=== PATIENT | female | born 1985 | race Two or more races ===

== ENCOUNTER 2019-08-03 14:36 | Emergency (ER) | payer OTHER ==
[~2019-08-03] VITALS: Ht 157.5 cm; Wt 73.9 kg
[2019-08-03 15:44] LABS: Alanine Aminotransferase 52 U/L (13-56); Albumin 3.4 g/dL (3.4-5.0); Anion Gap 9 (5-15); Aspartate Aminotransferase 23 U/L (15-37); BUN/Creatinine Ratio 29.9; Blood Urea Nitrogen 20 mg/dL (7-18); Calcium 8.5 mg/dL (8.5-10.1); Carbon Dioxide 26 mmol/L (21-32); Chloride 105 mmol/L (98-107); GFR African American 128 mL/min; GFR Non-African American 106 mL/min; Glucose 125 mg/dL (74-106); Magnesium 2.3 mg/dL (1.6-2.6); Potassium 3.2 mmol/L (3.5-5.1); Sodium 140 mmol/L (136-145)
[2019-08-03 15:49] LABS: Alkaline Phosphatase 75 U/L (45-117); Bilirubin, Total 0.2 mg/dL (0.2-1.0); Total Protein 7.2 g/dL (6.4-8.2)
[2019-08-03 16:26] LABS: Basophils # (auto) 0 uL; Basophils % (auto) 0.2 % (0.0-2.0); Eosinophils # (auto) 0.1 uL; Hemoglobin 13.7 g/dL (12.2-16.2); Lymphocytes # (auto) 5.8 uL; Lymphocytes % (auto) 51.8 % (10.0-50.0); Mean Corpuscular Hemoglobin 28.3 pg (28.0-32.0); Mean Corpuscular Hgb Conc. 33.4 g/dL (32.0-36.0); Mean Corpuscular Volume 84.9 fL (80.0-100.0); Monocytes # (auto) 0.5 uL; Monocytes % (auto) 4.5 % (0.0-12.0); Neutrophils # (auto) 4.8 uL; Neutrophils % (auto) 42.5 % (37.0-80.0); Platelet Count (auto) 236 10^3/uL (140-450); Red Blood Cells 4.83 10^6/uL (4.0-5.20); Red Cell Distribution Width 15.1 % (11.8-14.3); White Blood Cell 11.3 10^3/uL (4.4-10.8)
[2019-08-03] MEDS ORDERED: diphenhdrAMINE HCL 50 MG/1 ML VL ONE (17:58)
[2019-08-03] MEDS ORDERED: diphenhdrAMINE HCL 50 MG/1 ML VL IM ONE (18:00)
[2019-08-03 18:53] VITALS: BP 100/64
== END 2019-08-03 18:57 | disposition home or self-care (01) ==
LOC: EDBD 14:36 → ER 14:36
DX: R07.89 Other chest pain (principal); L23.9 Allergic contact dermatitis, unspecified cause; K21.9 Gastro-esophageal reflux disease without esophagitis
CPT/HCPCS: 36415; 71046; 80053; 83735; 84484; 84702; 85025; 85379; 96372; 99284; J1200; 93005

== ENCOUNTER 2021-12-13 19:11 | Emergency (ER) | payer OTHER ==
[~2021-12-13] VITALS: Ht 157.5 cm; Wt 68.0 kg
[2021-12-13 19:23] VITALS: BP 121/80
== END 2021-12-13 23:40 | disposition left against medical advice (07) ==
LOC: ER 19:11
DX: R51.9 Headache, unspecified (principal); R11.0 Nausea; Z53.21 Procedure and treatment not carried out due to patient leaving prior to being seen by health care provider

== ENCOUNTER 2024-04-01 01:25 | Emergency (ER) | payer OTHER, MEDICAID ==
[~2024-04-01] VITALS: Ht 157.5 cm; Wt 69.8 kg
[2024-04-01 01:49] LABS: Urine Bacteria None Seen /hpf (None Seen)
[2024-04-01 02:04] LABS: Basophils # (auto) 0 10 ^3/uL (0-0.2); Basophils % (auto) 0.4 % (0.0-2.0); Eosinophils # (auto) 0.4 10 ^3/uL (0-0.8); Lymphocytes # (auto) 3.4 10 ^3/uL (0.4-5.4)
[2024-04-01 02:05] LABS: Chloride 108 mmol/L (98-107); Eosinophils % (auto) 4.5 % (0.0-7.0); Hematocrit 37.7 % (36.0-46.0); Hemoglobin 12.2 g/dL (12.2-16.2); Lymphocytes % (auto) 35.6 % (10.0-50.0); Mean Corpuscular Hemoglobin 25.4 pg (28.0-32.0); Mean Corpuscular Hgb Conc. 32.5 g/dL (32.0-36.0); Mean Corpuscular Volume 78.4 fL (80.0-100.0); Monocytes # (auto) 0.7 10 ^3/uL (0-1.3); Monocytes % (auto) 7.2 % (0.0-12.0); Neutrophils # (auto) 4.9 10 ^3/uL (1.6-8.6); Neutrophils % (auto) 52.3 % (37.0-80.0); Platelet Count (auto) 197 10^3/uL (140-450); Potassium 3.4 mmol/L (3.5-5.1); Red Blood Cells 4.82 10^6/uL (4.0-5.20); Red Cell Distribution Width 18.9 % (11.8-14.3); Sodium 140 mmol/L (136-145); White Blood Cell 9.4 10^3/uL (4.4-10.8)
[2024-04-01 02:06] LABS: Anion Gap 6 (5-15); Calcium 8.9 mg/dL (8.7-10.4); Carbon Dioxide 26 mmol/L (20-30)
[2024-04-01 02:11] LABS: BUN/Creatinine Ratio 16.2 (10.0-20.0); Blood Urea Nitrogen 11 mg/dL (9-23); Glucose 92 mg/dL (74-106)
[2024-04-01 02:23] LABS: Urine Blood Negative /uL (Negative); Urine Clarity Clear (Clear); Urine Color Light-Yellow (Yellow); Urine Mucus FEW (None Seen); Urine Protein, UAD Negative (Negative); Urine Specific Gravity 1.023 (1.001-1.035); Urine Urobilinogen Normal (Negative); Urine WBC 1 /hpf (0 - 5); Urine pH 7.5 (5.0-9.0)
[2024-04-01] MEDS ORDERED: PANT40TA2 PO (02:40)
[2024-04-01 03:01] VITALS: BP 103/66; PULSE 95; RESP 16; TEMP 98.2; O2SAT 95
[2024-04-01] MEDS: DONNATAL 5ml ORAL Elix (BELLADONNA ALK-PHENOBARB) PO ONE (03:15)
[2024-04-01] MEDS: MAALOX PLUS or MAALOX 30 ML PO ONE (03:15)
[2024-04-01] MEDS: LIDOCAINE VISCOUS 2% 15ML UD PO ONE (03:15)
== END 2024-04-01 03:25 | disposition home or self-care (01) ==
LOC: ER 01:25
DX: K29.70 Gastritis, unspecified, without bleeding (principal); K21.9 Gastro-esophageal reflux disease without esophagitis; Z98.890 Other specified postprocedural states
CPT/HCPCS: 36415; 80048; 81001; 85025

== ENCOUNTER 2024-04-01 03:51 | Emergency (ER) | payer OTHER, MEDICAID ==
[~2024-04-01] VITALS: Ht 157.5 cm; Wt 69.8 kg
[~2024-04-01 03:51] MED LIST: PANT40TA2 PO
[2024-04-01] MEDS: SODIUM CHLORIDE 0.9% 1,000 ML IV ONE (04:13)
[2024-04-01 05:17] VITALS: BP 113/69; PULSE 72; RESP 16; O2SAT 100
== END 2024-04-01 05:19 | disposition home or self-care (01) ==
LOC: ER 03:51
DX: F45.8 Other somatoform disorders (principal); K21.9 Gastro-esophageal reflux disease without esophagitis; Z98.890 Other specified postprocedural states
CPT/HCPCS: 70450; 82962; 96360; 99284; J7030